=== PATIENT | male | born 1945 | race Caucasian/White ===

== ENCOUNTER 2023-01-23 16:16 | Inpatient (IN) | payer MEDICARE, SELFPAY ==
--- NOTE | ~2023-01-23 | CT_ITS ---
EXAMINATION: CT brain wo con DATE: 01/23/2023 17:47 INDICATION: fall . TECHNIQUE: Computed tomography (CT) of the head was performed without intravenous contrast. The mA wa s adjusted according to patient size. Iterative reconstruction technique was employed. The dose-lengt h product was 681.00 mGy-cm. COMPARISON: None. FINDINGS: No acute intracranial hemorrhage or extra-axial fluid collection. No hydrocephalus, mass, or herniation. No acute ischemic infarct. Unremarkable dural venous sinus attenuation. No acute osseous abnormality. The aerated spaces are clear. Mild atrophy and chronic white matter change. Mild atherosclerotic intracranial calcification. Bilate ral lens replacements. IMPRESSION: No acute intracranial process. Reviewed, dictated and finalized at location K.
--- NOTE | ~2023-01-23 | XR_ITS ---
Portable chest x-ray Comparison: 07/16/2017 Clinical History: Preoperative evaluation Findings: Lungs are clear, without focal consolidation or pleural effusion. Cardiomediastinal silho uette is prominent, possibly due to AP technique. Bones and soft tissues are unremarkable. Impression: Clear lungs. Reviewed, dictated and finalized at location . Impression: Clear lungs.
--- NOTE | ~2023-01-23 | XR_ITS ---
EXAM: XR hip RT 2V w AP pelvis DATE: 01/23/2023 16:54 HISTORY: FELL OFF LADDER, PAIN IN RT HIP . COMPARISON: None available. FINDINGS: Osteopenia. Transverse fracture through the midportion of the right femoral neck without s ignificant displacement degenerative changes in the left hip and lumbar spine. Heterotopic ossificati on at the left hip. Scattered pelvic enthesopathy. IMPRESSION: Nondisplaced transverse right femoral neck fracture. Reviewed, dictated and finalized at location K.
--- NOTE | ~2023-01-23 | XR_ITS ---
EXAMINATION: XR surgery orthopedic DATE: 01/24/2023 12:48 INDICATION: Right femoral neck fracture. TECHNIQUE: 3 intraoperative fluoroscopic views of right hip were obtained. I was not present. Fluoros copy exposure time was 33 seconds. COMPARISON: Right hip radiographs 01/23/2023 FINDINGS: There is a fracture of right femoral neck in near-anatomic alignment status post open reduc tion internal fixation with 3 lag screws. There is mild right hip osteoarthritis. IMPRESSION: 1. Right femoral neck fracture status post open reduction internal fixation. Reviewed, dictated and finalized at location A.
--- NOTE | ~2023-01-23 | CT_ITS ---
EXAMINATION: CT cervical spine wo con DATE: 01/23/2023 17:55 INDICATION: fall TECHNIQUE: Computed tomography (CT) of the cervical spine was performed without intravenous contrast. Automated exposure control and iterative reconstruction technique were employed. The dose-length pro duct was 539.50 mGy-cm. COMPARISON: None. FINDINGS: Vertebral Body Alignment: Intact. . Craniocervical and atlantoaxial alignment: Mild degenerative change. Alignment intact. Osseous structures/fracture: No evidence of a lytic or blastic process in the visualized spine. No e vidence of acute fracture. Unfused posterior C1 arch. Cervical soft tissues: The paraspinal soft tissues planes are maintained. Degenerative changes: Degenerative changes, without severe neural foraminal or central canal narrowin g. IMPRESSION: No acute fracture or traumatic malalignment in the cervical spine. Reviewed, dictated and finalized at location K.
[2023-01-23 16:18] VITALS: BP 183/77; PULSE 59; RESP 16; TEMP 36.6; O2SAT 96
--- NOTE | 2023-01-23 17:18 | ED.FALL ---
HPI - Fall General Chief Complaint: Fall Stated Complaint: fall off step stool Time Seen by Provider: 01/23/23 16:18 History of Present Illness HPI Narrative: Patient was on a ladder to fix something and on the second rung when he slipped and fell and landed on his right hip, denies any pain anywhere else. Having trouble moving his right hip. Related Data Home Medications Medication Instructions Recorded Confirmed omega-3 fatty acids 1,000 mg 1,000 mg PO BID 04/05/22 10/17/22 capsule (Fish Oil Concentrate) terbinafine HCl 250 mg tablet 250 mg PO DAILY 10/17/22 10/17/22 Allergies Allergy/AdvReac Type Severity Reaction Status Date / Time No Known Allergies Allergy Verified 10/17/22 10:28 Review of Systems Review of Systems: CONST: No fever. HEENT: No head trauma C/V: No chest pain RESP: No cough GI: No abdominal pain : No dysuria. M/S: Right hip pain SKIN: Abrasion R elbow NEURO: [No headache or focal numbness or weakness] PSYCH: [No depression] [facility] Past Medical History Medical History (Updated 01/23/23 @ 17:20 by Katina Gonsales MD) Exposure to benzene Hyperlipidemia Melanoma Obesity (BMI 30-39.9) Osteoarthritis, knee Surgical History Surgical History H/O vasectomy Social History Social History Smoking packs per day: 1 Smoking cigarettes per day: 20.0 Years smoked: 20 Smoking pack-years: 20.00 Smoking status: Former smoker Tobacco type: cigarettes Smoking end date: 11/12/84 Alcohol intake: current Drinks per week: 3 Alcohol use details: social Substance use: never Substance use type: does not use Lack of Transportation: No Lack of Food: Never True Current Housing: I Have Housing Concerned About Future Housing: No Difficulty Paying Gas/Electric Bills: No Difficulty Paying for Meds: No Currently Unemployed: No Education: Trade/Vocational Certificate Difficulty w/ Childcare or Family Care: No Living arrangements: with family Occupation/Education: retired Gender identity (if verbalized by the patient): Male Sexual Orientation (if Verbalized by the Patient): Straight or Heterosexual Exam Narrative: EXAMINATION OF ORGAN SYSTEMS/BODY AREAS: Constitutional: Vital signs per nursing GENERAL:[No acute distress, non-toxic appearing.] HEAD: Normal with no signs of head trauma. EYES: EOMI, conjunctiva normal ENT: Hearing grossly intact LUNGS: Nonlabored breathing. HEART: [Regular rate and rhythm] ABD: [Soft], [nontender to palpation] EXT: Pain with attempted move right hip SKIN: Abrasions right elbow NEURO: [Alert and oriented x 3.] PSYCH: Normal affect Course Vital Signs Vital signs: Vital Signs Temperature 98 F 01/23/23 16:18 Pulse Rate 59 L 01/23/23 16:18 Respiratory Rate 16 01/23/23 16:18 Blood Pressure 183/77 H 01/23/23 16:18 Pulse Oximetry 96 01/23/23 16:18 Oxygen Delivery Room Air 01/23/23 16:18 Temperature 98 F 01/23/23 16:18 Pulse Rate 59 L 01/23/23 16:18 Respiratory Rate 16 01/23/23 16:18 Blood Pressure 183/77 H 01/23/23 16:18 Pulse Oximetry 96 01/23/23 16:18 Oxygen Delivery Room Air 01/23/23 16:18 MDM - Fall MDM Narrative Medical decision making narrative: 77-year-old male who fell and landed on his right hip, vital stable, has pain with movement of his right hip, has abrasions to his right elbow, denies any pain or trauma anywhere else. X-ray obtained here independently interpreted by myself shows acute right hip fracture. His tetanus is up-to-date, he has normal movement of his elbow and I have low concern for fracture here. Discussed with orthopedics who wants patient admitted to medicine, case discussed with medicine who are agreeable to admitting the patient, requested CT head and C-spine and these are normal. Discharge Plan Discharge Clinical
[2023-01-23 18:07] LABS: Basophils Absolute Auto 0.1 K/mm3 (0.0-0.1); Basophils Percent Auto 0.6 % (0.2-1.2); Eosinophils Absolute Auto 0.1 K/mm3 (0-0.3); Eosinophils Percent Auto 1.6 % (0-4.4); Hematocrit 46.4 % (42.0-52.0); Hemoglobin 15.5 g/dL (14.0-18.0); Immature Granulocyte Absolute 0.03 K/mm3 (0.00-0.031); Immature Granulocyte Percent A 0.3 % (0-0.5); Lymphocytes Absolute Auto 0.71 K/mm3 (0.9-3.2); Lymphocytes Percent Auto 7.9 % (18.3-44.2); Mean Corpuscular HGB Conc 33.4 g/dl (32-36); Mean Corpuscular Hemoglobin 29.5 pg (26-34); Mean Corpuscular Volume 88.4 fl (80-100); Mean Platelet Volume 10.3 fl (7.4-10.4); Monocytes Absolute Auto 0.5 K/mm3 (0.1-0.6); Neutrophils Absolute Auto 7.5 K/mm3 (1.3-6.7); Neutrophils Percent Auto 83.6 % (45.5-73.1); Platelet Count Result 170 k/mm3 (150-375); Red Blood Count 5.25 M/mm3 (4.6-6.20); Red Cell Distribution Width 13.8 % (11.5-14.5); White Blood Count 8.9 K/mm3 (4.5-10.0)
[2023-01-23 18:17] LABS: Anion Gap 5 mmol/L (8-16); Blood Urea Nitrogen 18 mg/dL (9-20); Calcium 9.1 mg/dL (8.4-10.2); Carbon Dioxide 31 mmol/L (22-30); Chloride 104 mmol/L (98-107); Estimated CRCL calculation 66 ml/min; Estimated Glomerular Filt Rate > 60; Glucose 99 mg/dL (65-110); Potassium 4.7 mmol/L (3.4-5.0); Sodium 140 mmol/L (137-145)
[2023-01-23] MEDS: diazePAM (*CRX) 5 MG TABLET PO (20:43)
--- NOTE | 2023-01-23 20:53 | PM.IMHP ---
H&P: HPI History of Present Illness Date/Time: 01/23/23 20:53 Chief Complaint: Fall Narrative: This is a very active 77-year-old male patient who was making some repairs on assessed. The patient was standing on the 2nd rung of the ladder when he fell off and landed on his right hip. The patient stated that the latter was still in the position so he is not sure what exactly happened because the latter did not fall. The patient was having difficulty moving that right hip. He denies hitting his head. The patient does not take any anticoagulation however he is on NSAIDs chronically. Hip and pelvis CT was read as nondisplaced transverse right femoral neck. Head CT was read as no acute intracranial process. Cervical spine no acute fracture or traumatic malalignment in the cervical spine. The patient was complaining of right hip pain. Dr. Doan was notified and agrees to consultation. The patient was complaining of muscle spasms and was given Valium and IV Tylenol. The patient is being admitted to inpatient status on the date of service of 01/23/2023. Review of Systems Review of Systems: All systems reviewed & are unremarkable except as noted in HPI and below Constitutional: Constitutional: Reports as per HPI and Reports no additional constitutional complaints Eyes: Eyes: Reports as per HPI and Reports no additional eye complaints ENT: Reports system reviewed and no additional complaints, except as documented and Reports Normal hearing present Cardiovascular: Cardiovascular: Reports no additional cardiovascular complaints Respiratory: Respiratory: Reports no additional respiratory complaints and Reports no additional respiratory complaints Gastrointestinal: Gastrointestinal: Reports as per HPI and Reports no additional gastrointestinal complaints Musculoskeletal: Musculoskeletal: Reports no additional musculoskeletal complaints Integumentary/Breasts: Skin/Breast: Reports system reviewed and no additional complaints, except as docu and Reports as per HPI Neurologic: Reports system reviewed and no additional complaints, except as documented, Reports as per HPI and Reports Normal hearing present Psychiatric: Psychiatric: Reports no additional psychiatric complaints and Reports as per HPI Endocrine: Endocrine: Reports no additional endocrine complaints Hematologic/Lymphatic: Hematologic/Lymphatic: Reports no additional hematologic/lymphatic complaints Allergic/Immunologic: Allergic/Immunologic: Reports no additional allergic/immunologic complaints [facility] Past Medical History Medical History (Updated 01/24/23 @ 01:06 by Reina Odell NP) Exposure to benzene Hyperlipidemia Melanoma Obesity (BMI 30-39.9) Osteoarthritis, knee Surgical History Surgical History (Updated 01/24/23 @ 00:57 by Reina Odell NP) H/O vasectomy History of cataract extraction History of removal of pigmented skin lesion Melanoma Family History Family History (Updated 01/24/23 @ 00:58 by Reina Odell NP) Other Hyperlipidemia Social History Social History (Updated 01/24/23 @ 00:58 by Reina Odell NP) Social History: The patient lives with his who has multiple myeloma and he takes care of her. He is retired from [employer]. He has 2 children. He is a former smoker. He denies any alcohol marijuana or illicit drugs. Code status full code Smoking packs per day: 1 Smoking cigarettes per day: 20.0 Years smoked: 20 Smoking pack-years: 20.00 Smoking status: Former smoker Tobacco type: cigarettes Smoking end date: 11/12/84 Alcohol intake: current Drinks per week: 3 Alcohol use details: social Substance use: never Substance use type: does not use Lack of Transportation: No Lack of Food: Never True Current Housing: I Have Housing Concerned About Future Housing: No Difficulty Paying Gas/Electric Bills: No Difficulty Paying for Meds: No Currently Unemployed: No Education:
[2023-01-23 22:00] VITALS: BP 154/70; PULSE 60; RESP 18; TEMP 36.8; O2SAT 93
--- NOTE | 2023-01-23 22:50 | PM.CNOR ---
Assessment and Plan Assessment and plan (1) Closed fracture of right hip: Qualifiers: Encounter type: initial encounter Qualified Code(s): S72.001A - Fracture of unspecified part of neck of right femur, initial encounter for closed fracture Code(s): S72.001A - Fracture of unspecified part of neck of right femur, initial encounter for closed fracture Status: Acute Assessment and Plan: New patient evaluation for chief complaint right hip fx. History, physical exam and radiographs reviewed with the patient. Discussed the condition, nature, etiology and course of natural history with the patient. Treatment options including surgical and nonoperative treatment were reviewed. Risks and benefits of each as well as alternatives reviewed. The patient's questions were answered. Pain control, mechanical dvt px. Discussed nonoperative and operative treatment options with the patient. Risks and benefits of each as well as alternatives were reviewed. All of the patient's questions were answered. The risks of surgery reviewed including but not limited to: Neurovascular damage, wound complication, infection, blood clot, pulmonary embolus, stroke, myocardial infarction, and anesthetic risks up to and including . Continued pain and possible dysfunction were explained. Specific risks of the procedure including later recurrence of deformity. No guarantees were offered. If hardware used, discussed risk of failure/ breakage and possible need for removal. If complications occur, the patient understands the need for further treatment, possible further surgery. Patient verbalizes understanding and wishes to proceed. PLAN: RT hip pinning Plan to proceed when medically stable. History of Present Illness HPI Consult date: 01/24/23 Requesting physician: Katina Gonsales MD Chief complaint: Rt Hip Fx Narrative: 77 yo man, fell from ladder onto right hip. Xrays show rt hip fx. Independent ambulator with no problems with hip previously. No previous assistive device needs. Review of Systems Constitutional: Constitutional: Denies fever(s) Eyes: Eyes: Denies blurry vision ENT: Reports Normal hearing present Cardiovascular: Cardiovascular: Denies chest pain and Denies dyspnea Respiratory: Respiratory: Denies dyspnea and Denies wheezing Gastrointestinal: Gastrointestinal: Denies abdominal pain Genitourinary: Genitourinary: Denies urinary urgency Musculoskeletal: Musculoskeletal: Reports as per HPI and Denies numbness Integumentary/Breasts: Skin/Breast: Denies changing lesions and Denies sores Neurologic: Reports Normal hearing present, Denies behavioral changes, Denies confusion, Denies numbness and Denies convulsions Psychiatric: Psychiatric: Denies behavioral changes, Denies confusion and Denies hallucinations Endocrine: Endocrine: Denies heat intolerance Hematologic/Lymphatic: Hematologic/Lymphatic: Denies easy bleeding Allergic/Immunologic: Allergic/Immunologic: Denies wheezing PMFSH Past Medical History Medical History Exposure to benzene Hyperlipidemia Melanoma Obesity (BMI 30-39.9) Osteoarthritis, knee Surgical History Surgical History H/O vasectomy History of cataract extraction History of removal of pigmented skin lesion Melanoma Family History Family History Other Hyperlipidemia Social History Social History Social History: The patient lives with his who has multiple myeloma and he takes care of her. He is retired from [employer]. He has 2 children. He is a former smoker. He denies any alcohol marijuana or illicit drugs. Code status full code Smoking packs per day: 1 Smoking cigarettes per day: 20.0 Years smoked: 20 Smoking pack-years: 20.00 Sm
[2023-01-23] MEDS: HYDROcodone/acetaminophen (*CRX) 5-325 MG TABLET 1 TAB PO (23:37)
[2023-01-24] VITALS (10 sets, daily range): BP systolic 108–175; BP diastolic 54–73; PULSE 48–68; RESP 13–20; TEMP 36.4–36.8; O2SAT 93–98
[2023-01-24] MEDS: SODIUM CHLORIDE 0.9% IV 1,000 ML 100 ML IV CONT (03:02)
[2023-01-24 06:55] LABS: Basophils Absolute Auto 0.1 K/mm3 (0.0-0.1); Basophils Percent Auto 0.9 % (0.2-1.2); Eosinophils Absolute Auto 0.2 K/mm3 (0-0.3); Eosinophils Percent Auto 3.3 % (0-4.4); Hematocrit 42.9 % (42.0-52.0); Hemoglobin 14.2 g/dL (14.0-18.0); Immature Granulocyte Absolute 0.01 K/mm3 (0.00-0.031); Immature Granulocyte Percent A 0.1 % (0-0.5); Lymphocytes Absolute Auto 0.83 K/mm3 (0.9-3.2); Lymphocytes Percent Auto 12.4 % (18.3-44.2); Mean Corpuscular HGB Conc 33.1 g/dl (32-36); Mean Corpuscular Hemoglobin 29.7 pg (26-34); Mean Corpuscular Volume 89.7 fl (80-100); Mean Platelet Volume 10.2 fl (7.4-10.4); Monocytes Absolute Auto 0.6 K/mm3 (0.1-0.6); Monocytes Percent Auto 9.2 % (2.6-8.5); Neutrophils Percent Auto 74.1 % (45.5-73.1); Platelet Count Result 148 k/mm3 (150-375); Red Blood Count 4.78 M/mm3 (4.6-6.20); Red Cell Distribution Width 13.8 % (11.5-14.5); White Blood Count 6.7 K/mm3 (4.5-10.0)
[2023-01-24 07:15] LABS: Alanine Aminotransferase 29 U/L (6-50); Albumin Level 4.1 g/dL (3.5-5.1); Alkaline Phosphatase 47 U/L (38-126); Anion Gap 4 mmol/L (8-16); Aspartate Amino Transferase 29 U/L (17-59); Bilirubin,Total 1.4 mg/dL (0.2-1.3); Blood Urea Nitrogen 18 mg/dL (9-20); Calcium 8.7 mg/dL (8.4-10.2); Carbon Dioxide 31 mmol/L (22-30); Chloride 103 mmol/L (98-107); Estimated CRCL calculation 66 ml/min; Estimated Glomerular Filt Rate > 60; Glucose 107 mg/dL (65-110); Magnesium 2.3 mg/dL (1.6-2.3); Potassium 4.1 mmol/L (3.4-5.0); Sodium 138 mmol/L (137-145)
--- NOTE | 2023-01-24 07:18 | WPDHPUPDATE1 ---
History and Physical Update Update Date/Time: 01/24/23 07:18 History and Physical has been reviewed, including an updated exam of the patient. There are NO changes in the patient's condition. Risks, benefits, and alternatives have been discussed and questions answered. Patient agrees to proceed with procedure.
[2023-01-24 08:08] LABS: Thyroid Stimulating Hormone Reflex 0.879 uIU/mL (0.465-4.68)
--- NOTE | 2023-01-24 09:49 | PC.NURSE ---
Patient off of unit to surgery
[2023-01-24] MEDS: LACTATED RINGERS 1,000 ML 30 ML IV CONT (10:15)
[2023-01-24] MEDS: ACETAMINOPHEN 500 MG TABLET 1000 MG PO (10:49)
[2023-01-24] MEDS: TRANEXAMIC ACID 1,000MG/ISO100 1,000 MG/100 ML BAG 200 MG IVPB (10:52)
[2023-01-24] MEDS: KETOROLAC 15 MG/ML VIAL (*BKC) IV PUSH (10:52)
--- NOTE | 2023-01-24 11:31 | WPDANESEPPF ---
Anes - Initial Pre Proc Eval Procedure: Operation Date: 01/24/23 12:30 Proposed Procedures p Right Hip Pinning - Andrew Doan MD Date/Time: 01/24/23 11:31 Surgeon: Shreya Escobar MD Pre Op Diagnosis: Rt Hip Fx Patient Data Age: 77 Gender: M Height: 1.68 m Weight: 96 kg Last Vital Signs Temp 36.7 C 01/24/23 10:00 Pulse 56 L 01/24/23 10:00 Resp 20 01/24/23 10:00 BP 175/67 H 01/24/23 10:00 Pulse Ox 94 01/24/23 10:00 O2 Del Method Room Air 01/24/23 10:00 Allergies Allergy/AdvReac Type Severity Reaction Status Date / Time No Known Allergies Allergy Verified 10/17/22 10:28 Home Medications Medication Instructions Recorded Confirmed Type diclofenac sodium 50 mg 75 mg PO BID PRN pain #60 tabs 04/05/22 01/23/23 Rx tablet,delayed release omega-3 fatty acids 1,000 mg 1,000 mg PO BID 04/05/22 01/23/23 History capsule (Fish Oil Concentrate) simvastatin 20 mg tablet 20 mg PO HS 01/23/23 01/23/23 History Laboratory Tests 01/23/23 01/24/23 01/24/23 18:00 01:51 06:43 WBC 8.9 K/mm3 (4.5-10.0) RBC 5.25 M/mm3 (4.6-6.20) Hgb 15.5 g/dL (14.0-18.0) Hct 46.4 % (42.0-52.0) MCV 88.4 fl (80-100) MCH 29.5 pg (26-34) MCHC 33.4 g/dl (32-36) RDW 13.8 % (11.5-14.5) Plt Count 170 k/mm3 (150-375) MPV 10.3 fl (7.4-10.4) Immature Gran % (Auto) 0.3 % (0-0.5) Neut % (Auto) 83.6 H % (45.5-73.1) Lymph % (Auto) 7.9 L % (18.3-44.2) Becker % (Auto) 6.0 % (2.6-8.5) Eos % (Auto) 1.6 % (0-4.4) Baso % (Auto) 0.6 % (0.2-1.2) Lymph # (Auto) 0.71 L K/mm3 (0.9-3.2) Becker # (Auto) 0.5 K/mm3 (0.1-0.6) Eos # (Auto) 0.1 K/mm3 (0-0.3) Baso # (Auto) 0.1 K/mm3 (0.0-0.1) Abs Immat Gran (auto) 0.03 K/mm3 (0.00-0.031) Absolute Neuts (auto) 7.5 H K/mm3 (1.3-6.7) Absolute Nucleated RBC 0.0 K/mm3 (0.0-0.012) Nucleated RBC % 0.0 % (0.0-0.2) Sodium 140 mmol/L 138 mmol/L (137-145) (137-145) Potassium 4.7 mmol/L 4.1 mmol/L (3.4-5.0) (3.4-5.0) Chloride 104 mmol/L 103 mmol/L (98-107) (98-107) Carbon Dioxide 31 H mmol/L 31 H mmol/L (22-30) (22-30) Anion Gap 5 L mmol/L 4 L mmol/L (8-16) (8-16) BUN 18 mg/dL 18 mg/dL (9-20) (9-20) Creatinine 0.90 mg/dL 0.90 mg/dL (0.7-1.3) (0.7-1.3) Estim Creat Clear Calc 66 ml/min 66 ml/min Estimated GFR > 60 > 60 (59 - ) (59 - ) Glucose 99 mg/dL 107 mg/dL (65-110) (65-110) Calcium 9.1 mg/dL 8.7 mg/dL (8.4-10.2) (8.4-10.2) Magnesium 2.3 mg/dL (1.6-2.3) Total Bilirubin 1.4 H mg/dL (0.2-1.3) AST 29 U/L (17-59) ALT 29 U/L (6-50) Alkaline Phosphatase 47 U/L (38-126) Total Protein 7.0 g/dL (6.3-8.2) Albumin 4.1 g/dL (3.5-5.1) TSH (Reflex) Blood Type A Negative Antibody Screen Negative 01/24/23 06:44 WBC 6.7 K/mm3 (4.5-10.0) RBC 4.78 M/mm3 (4.6-6.20) Hgb 14.2 g/dL (14.0-18.0) Hct 42.9 % (42.0-52.0) MCV 89.7 fl (80-100) MCH 29.7 pg (26-34) MCHC 33.1 g/dl (32-36) RDW 13.8 % (11.5-14.5) Plt Count 148 L k/mm3 (150-375) MPV 10.2 fl (7.4-10.4) Immature Gran % (Auto) 0.1 % (0-0.5) Neut % (Auto) 74.1 H % (45.5-73.1) Lymph % (Auto) 12.4 L % (18.3-44.2) Becker % (Auto) 9.2 H % (2.6-8.5) Eos % (Auto) 3.3 % (0-4.4) Baso % (Auto) 0.9 % (0.2-1.2) Lymph # (Auto) 0.83 L K/mm3 (0.9-3.2) Becker # (Auto) 0.6 K/mm3 (0.1-0.6) Eos # (Auto) 0.2 K/mm3 (0-0.3) Baso # (Auto) 0.1 K/mm3 (0.0-0.1) Abs Immat Gran (auto) 0.01 K/mm3 (0.00-0.031) Absolute Neuts (auto) 5.
[2023-01-24] MEDS: ceFAZolin 2 GM/D5W 50 ML 2 GM/50 ML BAG IVPB (12:06)
[2023-01-24] MEDS: BUPIVACAINE/EPINEPHRINE 0.5% 50 ML VIAL 30 ML INFILTRATE (12:31)
--- NOTE | 2023-01-24 12:54 | W.PM.PROC2 ---
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 Otherwise medically stable and good bone quality. Indicated for hip pinning. Description of Procedure Informed consent signed. Extremity marked in preoperative holding area. Patient received intravenous antibiotics. Brought to operating room and underwent general anesthetic by the Anesthesia Team. Positioned supine on the fracture table. Right leg placed into longitudinal traction. Left leg extended out of field. Image intensification brought in and confirm reduction of fracture. Right hip prepped and draped in usual sterile surgical fashion using ChloraPrep skin solution. Image intensification used to guide the starting position and a longitudinal incision made with 10 blade knife over the lateral proximal femur. Blunt dissection carried down to the lateral femur. Bleeding controlled with electrocautery. First guide pin placed in the inferior center position of the femoral neck and head. Confirmed with image intensification. Two subsequent pins placed superior and anterior and superior and posterior to the 1st pin to create an inverted triangle type pattern. Pins confirmed with image intensification. Length of screw measured, reaming performed. Appropriate size screw placed with good compression and fixation noted for all 3 pins. Guide pins removed. Final image intensification confirmed reduction of fracture and placement of hardware. Wound thoroughly irrigated with antibiotic solution. Fascia repaired with 2 0 Vicryl interrupted sutures. Subcutaneous tissue repaired with 3 0 Monocryl interrupted suture. skin approximated with glue. Sterile dressing applied. Patient woken from anesthesia, extubated and returned to recovery room in stable condition. All sponge needle and instrument counts correct at the end of the case. Implants Arthrex 7.0 mm cannulated screw x3 Estimated Blood Loss 5 Urine Output 650 Drains No Packing No Pathology None sent Complications None Condition Stable Disposition PACU [facility] Billing Surgery - Charge Forward: Surgery Billing ([id number])
--- NOTE | 2023-01-24 13:50 | PM.IMPN ---
Progress Note: A&P Assessment and Plan (1) Closed fracture of right hip: Qualifiers: Encounter type: initial encounter Qualified Code(s): S72.001A - Fracture of unspecified part of neck of right femur, initial encounter for closed fracture Code(s): S72.001A - Fracture of unspecified part of neck of right femur, initial encounter for closed fracture Status: Acute Assessment and Plan: came to the ED post fall from the 2nd rung of the ladder Hip/pelvis xray: Nondisplaced transverse right femoral neck fracture. POD 0 pain medications on board, adjust as indicated Ortho consulted Hip repair surgery today PT/OT ordered DVT prophylaxis (2) Hyperlipidemia: Code(s): E78.5 - Hyperlipidemia, unspecified Status: Acute Assessment and Plan: Simvastatin can be resumed. (3) Elevated blood pressure reading: Code(s): R03.0 - Elevated blood-pressure reading, without diagnosis of hypertension Status: Acute Assessment and Plan: BP 108/54 P.r.n. hydralazine. Continue to trend stable at this time Time Spent With Patient Time: 52 minutes Time with patient: Greater than 35 minutes Subjective Date/time seen: 01/24/23 13:50 Interval history: 01/24/23 1350 Patient is doing ok. He currently denies any pain, chest pain, shortness of breath, nausea, vomiting, diarrhea, or constipation. Spoke to him about pain medications. Family was in the room, and all questions were answered. 01/23/23? 20:53 This is a very active 77-year-old male patient who was making some repairs on assessed.? The patient was standing on the 2nd rung of the ladder when he fell off and landed on his right hip.? The patient stated that the latter was still in the position so he is not sure what exactly happened because the latter did not fall.? The patient was having difficulty moving that right hip.? He denies hitting his head.? The patient does not take any anticoagulation however he is on NSAIDs chronically.? Hip and pelvis CT was read as nondisplaced transverse right femoral neck.? Head CT was read as no acute intracranial process.? Cervical spine no acute fracture or traumatic malalignment in the cervical spine.? The patient was complaining of right hip pain.? Dr. Doan was notified and agrees to consultation.? The patient was complaining of muscle spasms and was given Valium and IV Tylenol.? The patient is being admitted to inpatient status on the date of service of 01/23/2023. Review of Systems Review of Systems: All systems reviewed & are unremarkable except as noted in HPI and below Exam Narrative: General: well-nourished, tired-appearing 77-year-old male, laying in bed, uncomfortable, NARD Neuro: awake, alert and oriented x4, speech clear, no focal neuro deficits noted HEENMT: normocephalic, atraumatic, EOMI, sclerae anicteric, moist oral mucosa Respiratory: Clear to auscultation bilaterally without crackles, rhonchi or wheezes, nonlabored breathing Cardio: regular rate, regular rhythm with S1-S2 Abdomen: nondistended, normoactive bowel sounds, soft, nontender to palpation Extremities: no edema, erythema, or tenderness to palpation, DP pulses 2+ bilaterally, right hip slightly swollen dressing dry and intact Skin: no rashes or lesions, warm and dry Psych: appropriate mood and affect, judgment and insight intact Objective Data Vital Signs Vital Signs: Vital Signs - 24 hr 01/23/23 16:18 01/23/23 22:00 01/24/23 05:26 Temperature 98 F 98.2 F 97.5 F L Pulse Rate 59 L 60 58 L Respiratory Rate 16 18 18 Blood Pressure 183/77 H 154/70 H 145/64 H Pulse Oximetry 96 93 95 Oxygen Delivery Room Air Oxygen Flow Rate 01/24/23 10:00 01/24/23 12:56 01/24/23 13:10 Temperature 98.1 F 97.5 F L Pulse Rate 56 L 68 60 Respiratory Rate 20 13 14 Blood Pressure 175/67 H 135/59 L 115/65 Pulse Oximetry 94 98 96 Oxygen Delivery Room Air Simple Face Mask Simple Face
[2023-01-24] MEDS: SENNA/DOCUSATE SODIUM TABLET 2 TAB PO (16:55)
[2023-01-24] MEDS: SIMVASTATIN 20 MG TABLET PO (20:46)
[2023-01-24] MEDS: ceFAZolin 1 GM/NS 50 ML 1 GM/50 ML BAG IVPB (20:46)
[2023-01-25 03:42] VITALS: BP 144/61; PULSE 60; RESP 18; TEMP 36.8; O2SAT 95
[2023-01-25] MEDS: ceFAZolin 1 GM/NS 50 ML 1 GM/50 ML BAG IVPB ×2 (03:48→12:06)
[2023-01-25 06:38] LABS: Basophils Percent Auto 0.1 % (0.2-1.2); Eosinophils Absolute Auto 0.1 K/mm3 (0-0.3); Eosinophils Percent Auto 0.6 % (0-4.4); Hematocrit 42.6 % (42.0-52.0); Immature Granulocyte Absolute 0.02 K/mm3 (0.00-0.031); Immature Granulocyte Percent A 0.2 % (0-0.5); Lymphocytes Absolute Auto 0.66 K/mm3 (0.9-3.2); Lymphocytes Percent Auto 7.4 % (18.3-44.2); Mean Corpuscular HGB Conc 32.9 g/dl (32-36); Mean Corpuscular Hemoglobin 29.7 pg (26-34); Mean Corpuscular Volume 90.4 fl (80-100); Mean Platelet Volume 10.7 fl (7.4-10.4); Monocytes Absolute Auto 0.6 K/mm3 (0.1-0.6); Monocytes Percent Auto 7.2 % (2.6-8.5); Neutrophils Absolute Auto 7.6 K/mm3 (1.3-6.7); Neutrophils Percent Auto 84.5 % (45.5-73.1); Platelet Count Result 155 k/mm3 (150-375); Red Blood Count 4.71 M/mm3 (4.6-6.20); Red Cell Distribution Width 13.5 % (11.5-14.5)
[2023-01-25 06:49] LABS: Anion Gap 6 mmol/L (8-16); Blood Urea Nitrogen 19 mg/dL (9-20); Calcium 8.4 mg/dL (8.4-10.2); Carbon Dioxide 28 mmol/L (22-30); Chloride 103 mmol/L (98-107); Estimated CRCL calculation 74 ml/min; Estimated Glomerular Filt Rate > 60; Glucose 112 mg/dL (65-110); Magnesium 2.5 mg/dL (1.6-2.3); Potassium 4.4 mmol/L (3.4-5.0); Sodium 137 mmol/L (137-145)
[2023-01-25 07:42] VITALS: BP 162/72; PULSE 50; RESP 20; TEMP 36.1; O2SAT 95
--- NOTE | 2023-01-25 08:50 | PM.IMPN ---
Progress Note: A&P Assessment and Plan (1) Closed fracture of right hip: Qualifiers: Encounter type: initial encounter Qualified Code(s): S72.001A - Fracture of unspecified part of neck of right femur, initial encounter for closed fracture Code(s): S72.001A - Fracture of unspecified part of neck of right femur, initial encounter for closed fracture Status: Acute Assessment and Plan: came to the ED post fall from the 2nd rung of the ladder Hip/pelvis xray: Nondisplaced transverse right femoral neck fracture. POD 0 pain medications on board, adjust as indicated Ortho consulted Hip repair surgery today PT/OT ordered DVT prophylaxis (2) Hyperlipidemia: Code(s): E78.5 - Hyperlipidemia, unspecified Status: Acute Assessment and Plan: Simvastatin can be resumed. (3) Elevated blood pressure reading: Code(s): R03.0 - Elevated blood-pressure reading, without diagnosis of hypertension Status: Acute Assessment and Plan: BP 108/54 P.r.n. hydralazine. Continue to trend stable at this time Subjective Date/time seen: 01/25/23 08:50 Interval history: 01/24/23 1350 Patient is doing ok. He currently denies any pain, chest pain, shortness of breath, nausea, vomiting, diarrhea, or constipation. Spoke to him about pain medications. Family was in the room, and all questions were answered. 01/23/23? 20:53 This is a very active 77-year-old male patient who was making some repairs on assessed.? The patient was standing on the 2nd rung of the ladder when he fell off and landed on his right hip.? The patient stated that the latter was still in the position so he is not sure what exactly happened because the latter did not fall.? The patient was having difficulty moving that right hip.? He denies hitting his head.? The patient does not take any anticoagulation however he is on NSAIDs chronically.? Hip and pelvis CT was read as nondisplaced transverse right femoral neck.? Head CT was read as no acute intracranial process.? Cervical spine no acute fracture or traumatic malalignment in the cervical spine.? The patient was complaining of right hip pain.? Dr. Doan was notified and agrees to consultation.? The patient was complaining of muscle spasms and was given Valium and IV Tylenol.? The patient is being admitted to inpatient status on the date of service of 01/23/2023. Review of Systems Review of Systems: All systems reviewed & are unremarkable except as noted in HPI and below Exam Narrative: General: well-nourished, tired-appearing 77-year-old male, laying in bed, uncomfortable, NARD Neuro: awake, alert and oriented x4, speech clear, no focal neuro deficits noted HEENMT: normocephalic, atraumatic, EOMI, sclerae anicteric, moist oral mucosa Respiratory: Clear to auscultation bilaterally without crackles, rhonchi or wheezes, nonlabored breathing Cardio: regular rate, regular rhythm with S1-S2 Abdomen: nondistended, normoactive bowel sounds, soft, nontender to palpation Extremities: no edema, erythema, or tenderness to palpation, DP pulses 2+ bilaterally, right hip slightly swollen dressing dry and intact Skin: no rashes or lesions, warm and dry Psych: appropriate mood and affect, judgment and insight intact Objective Data Vital Signs Vital Signs: Vital Signs - 24 hr 01/24/23 10:00 01/24/23 12:56 01/24/23 13:10 Temperature 98.1 F 97.5 F L Pulse Rate 56 L 68 60 Respiratory Rate 20 13 14 Blood Pressure 175/67 H 135/59 L 115/65 Pulse Oximetry 94 98 96 Oxygen Delivery Room Air Simple Face Mask Simple Face Mask Oxygen Flow Rate 6 6 01/24/23 13:25 01/24/23 13:40 01/24/23 13:57 Temperature 97.5 F L Pulse Rate 52 L 48 L 55 L Respiratory Rate 16 16 18 Blood Pressure 112/59 L 108/54 L 145/60 H Pulse Oximetry 94 97 98 Oxygen Delivery Room Air Room Air Oxygen Flow Rate 01/24/23 15:42 01/24/23 15:48 01/24/23 19:42 Temper
--- NOTE | 2023-01-25 08:55 | P.PNOP_ITS ---
Progress Note: A&P Assessment and Plan (1) Closed fracture of right hip: Qualifiers: Encounter type: initial encounter Qualified Code(s): S72.001A - Fracture of unspecified part of neck of right femur, initial encount er for closed fracture <Sharon ReeseANNETTE ruiz - Last Filed: 01/25/23 09:02> Code(s): S72.001A - Fracture of unspecified part of neck of right femur, initial encounter for closed fracture <Sharon Reesesara, LOGISTICS TEAM LEADER - Last Filed: 01/25/23 09:02> Status: Acute <Sharon Hartley, LOGISTICS TEAM LEADER - Last Filed: 01/25/23 09:02> Assessment and Plan: POD #1 : Right Hip Pinning Continue PT/OT. WBAT. Walker. HIGH FALL RISK. Continue pain control. Ice hip. Protect skin. DVT prophylaxis with Aspirin. SCDs. Incentive Spirometry Use reviewed. Monitor Dressing. Change prior to discharge. Bowel Regimen. Dispo: Home with Home Health pending progress with PT/OT <Sharon Reesesara, LOGISTICS TEAM LEADER - Last Filed: 01/25/23 09:02> POD #1 : Right Hip Pinning Continue PT/OT. Partial weight right leg as tolerated. Walker. HIGH FALL RISK. Continue pain control. Ice hip. Protect skin. DVT prophylaxis with Aspirin. SCDs. Incentive Spirometry Use reviewed. Monitor Dressing. Change prior to discharge. Bowel Regimen. Dispo: Home with Home Health pending progress with PT/OT <Andrew Doan MD - Last Filed: 01/25/23 09:04> (2) Elevated blood pressure reading: Code(s): R03.0 - Elevated blood-pressure reading, without diagnosis of hypertension <Sharon Reesesara, LOGISTICS TEAM LEADER - Last Filed: 01/25/23 09:02> Status: Acute <Sharon Reesesara LOGISTICS TEAM LEADER - Last Filed: 01/25/23 09:02> Assessment and Plan: Medicine following <Sharon Reesesara, LOGISTICS TEAM LEADER - Last Filed: 01/25/23 09:02> (3) Prostatism: Code(s): N40.0 - Benign prostatic hyperplasia without lower urinary tract symptoms <Sharon GuevaraEdi Hartley, LOGISTICS TEAM LEADER - Last Filed: 01/25/23 09:02> Status: Acute <Sharon HartleyPARIP - Last Filed: 01/25/23 09:02> Subjective Subjective Date/Time Seen: 01/25/23 08:55 <Sharon ReesePARI ruizP - Last Filed: 01/25/23 09:02> Post Op day: 1 <Sharon GuevaraEdi HughPARI ruizP - Last Filed: 01/25/23 09:02> Interval history: POD #1: Right Hip Pinning Patient doing well. Pain well controlled. No new concerns. Hopeful for discharge home with home health. <Sharon GuevaraANNETTE Watts - Last Filed: 01/25/23 09:02> Review of Systems Review of Systems: All systems reviewed & are unremarkable except as noted in HPI and below <Sharon GuevaraPARI WattsP - Last Filed: 01/25/23 09:02> Constitutional: Constitutional: Denies chills, Denies fever(s), Denies headache(s), Denies lethargy and Reports weakness <Sharon GuevaraEdi HuhgPARI ruizP - Last Filed: 01/25/23 09:02> ENT: Denies headache(s) <Sharon GuevaraPARI WattsP - Last Filed: 01/25/23 09:02> Cardiovascular: Cardiovascular: Denies chest pain, Denies diaphoresis, Denies lightheadedness, Denies palpitations, Denies dyspnea and Denies dyspnea on exertion <Sharon GuevaraPARI WattsP - Last Filed: 01/25/23 09:02> Respiratory: Respiratory: Denies cough, Denies dyspnea and Denies dyspnea on exertion <Sharon GuevaraPARI WattsP - Last Filed: 01/25/23 09:02> Gastrointestinal: Gastrointestinal: Denies constipation, Denies diarrhea, Denies nausea and Denies vomiting <Sharon GuevaraPARI WattsP - Last Filed: 01/25/23 09:02> Genitourinary: Genitourinary: Denies dysuria, Reports urinary frequency and Denies urinary hesitancy <Sharon GuevaraPARI WattsP - Last Filed: 01/25/23 09:02> Musculoskeletal: Musculoskeletal: Reports joint swelling (Right Hip ) a
--- NOTE | 2023-01-25 08:55 | PM.PNORT ---
Progress Note: A&P Assessment and Plan (1) Closed fracture of right hip: Qualifiers: Encounter type: initial encounter Qualified Code(s): S72.001A - Fracture of unspecified part of neck of right femur, initial encounter for closed fracture <Sharon Hartley, LACE INSPECTOR - Last Filed: 01/25/23 09:02> Code(s): S72.001A - Fracture of unspecified part of neck of right femur, initial encounter for closed fracture <Sharonsa Lo Hartley, LACE INSPECTOR - Last Filed: 01/25/23 09:02> Status: Acute <Sharon Hartley, LACE INSPECTOR - Last Filed: 01/25/23 09:02> Assessment and Plan: POD #1 : Right Hip Pinning Continue PT/OT. WBAT. Walker. HIGH FALL RISK. Continue pain control. Ice hip. Protect skin. DVT prophylaxis with Aspirin. SCDs. Incentive Spirometry Use reviewed. Monitor Dressing. Change prior to discharge. Bowel Regimen. Dispo: Home with Home Health pending progress with PT/OT <Sharon Hartley, LACE INSPECTOR - Last Filed: 01/25/23 09:02> POD #1 : Right Hip Pinning Continue PT/OT. Partial weight right leg as tolerated. Walker. HIGH FALL RISK. Continue pain control. Ice hip. Protect skin. DVT prophylaxis with Aspirin. SCDs. Incentive Spirometry Use reviewed. Monitor Dressing. Change prior to discharge. Bowel Regimen. Dispo: Home with Home Health pending progress with PT/OT <Andrew Doan MD - Last Filed: 01/25/23 09:04> (2) Elevated blood pressure reading: Code(s): R03.0 - Elevated blood-pressure reading, without diagnosis of hypertension <Sharon Reesesara, LACE INSPECTOR - Last Filed: 01/25/23 09:02> Status: Acute <Sharon Hartley, LACE INSPECTOR - Last Filed: 01/25/23 09:02> Assessment and Plan: Medicine following <Sharon Hartley, LACE INSPECTOR - Last Filed: 01/25/23 09:02> (3) Prostatism: Code(s): N40.0 - Benign prostatic hyperplasia without lower urinary tract symptoms <Sharon Lo Reesesara, LACE INSPECTOR - Last Filed: 01/25/23 09:02> Status: Acute <Sharon HartleyPARIP - Last Filed: 01/25/23 09:02> Subjective Subjective Date/Time Seen: 01/25/23 08:55 <Sharon Hartley [facility] - Last Filed: 01/25/23 09:02> Post Op day: 1 <Sharon HartleyPARIP - Last Filed: 01/25/23 09:02> Interval history: POD #1: Right Hip Pinning Patient doing well. Pain well controlled. No new concerns. Hopeful for discharge home with home health. <Sharon GuevaraEdi HughPARI ruizP - Last Filed: 01/25/23 09:02> Review of Systems Review of Systems: All systems reviewed & are unremarkable except as noted in HPI and below <Sharon GuevaraEdi HughPARI ruizP - Last Filed: 01/25/23 09:02> Constitutional: Constitutional: Denies chills, Denies fever(s), Denies headache(s), Denies lethargy and Reports weakness <Sharon GuevaraEdi Hughsara LACE INSPECTOR - Last Filed: 01/25/23 09:02> ENT: Denies headache(s) <Sharon GuevaraEdi Hughsara LACE INSPECTOR - Last Filed: 01/25/23 09:02> Cardiovascular: Cardiovascular: Denies chest pain, Denies diaphoresis, Denies lightheadedness, Denies palpitations, Denies dyspnea and Denies dyspnea on exertion <Sharon GuevaraEdi HughPARI ruizP - Last Filed: 01/25/23 09:02> Respiratory: Respiratory: Denies cough, Denies dyspnea and Denies dyspnea on exertion <Sharon GuevaraEdi Hughsara [facility] - Last Filed: 01/25/23 09:02> Gastrointestinal: Gastrointestinal: Denies constipation, Denies diarrhea, Denies nausea and Denies vomiting <Sharon GuevaraEdi Hughsara LACE INSPECTOR - Last Filed: 01/25/23 09:02> Genitourinary: Genitourinary: Denies dysuria, Reports urinary frequency and Denies urinary hesitancy <Sharon IsmaelEdi Hartley [facility] - Last Filed: 01/25/23 09:02> Musculoskeletal: Musculoskeletal: Reports joint swelling (Right Hip ) and Reports limited range of motion (Right Hip due to recent surgery ) <ANNETTE Friedman - Last Filed: 01/25/23 09:02> Neurologic: Denies headache(s) and Reports weakness <ANNETTE Friedman - Last Filed: 01/25/23 09:02> Endocrine: Endocrine: Denies palpitations <ANNETTE Friedman - Last Filed: 01/25/23 09:02> Exam Const: General: comfortable and no acute distress <Nadia
[2023-01-25] MEDS: SENNA/DOCUSATE SODIUM TABLET 2 TAB PO (08:58)
[2023-01-25] MEDS: CELECOXIB 200 MG CAPSULE PO (08:58)
[2023-01-25] MEDS: ASPIRIN 325 MG ENTERIC TABLET 650 MG PO (08:58)
[2023-01-25] MEDS: HYDROcodone/acetaminophen (*CRX) 5-325 MG TABLET 1 TAB PO (09:00)
[2023-01-25 12:00] VITALS: BP 127/59; PULSE 51; RESP 20; TEMP 36.2; O2SAT 96
--- NOTE | 2023-01-25 13:15 | PM.DS ---
DS: Admitting Diagnosis Discharge Date 01/25/23 1315 Admitting Diagnosis Acute right hip fracture DS: Discharge Diagnosis Discharge Diagnosis (1) Closed fracture of right hip: Qualifiers: Encounter type: initial encounter Qualified Code(s): S72.001A - Fracture of unspecified part of neck of right femur, initial encounter for closed fracture Code(s): S72.001A - Fracture of unspecified part of neck of right femur, initial encounter for closed fracture Status: Acute Assessment and Plan: came to the ED post fall from the 2nd rung of the ladder Hip/pelvis xray: Nondisplaced transverse right femoral neck fracture. POD 1 pain medications on board, adjust as indicated Ortho consulted Hip repair surgery today PT/OT ordered DVT prophylaxis (2) Hyperlipidemia: Code(s): E78.5 - Hyperlipidemia, unspecified Status: Acute Assessment and Plan: Simvastatin can be resumed. (3) Elevated blood pressure reading: Code(s): R03.0 - Elevated blood-pressure reading, without diagnosis of hypertension Status: Acute Assessment and Plan: BP 127/59 P.r.n. hydralazine. Continue to trend stable at this time DS: Summary Hospital Course Hospital Course: Patient is a 77-year-old male with past medical history of hyperlipidemia and hypertension who presented to the ED after falling off a ladder. After the fall patient was noticed seeing having some pain in his right hip and was unable to really walk. X-ray showed nondisplaced transverse right femoral neck fracture. Orthopedics was consulted and patient was taken for hip repair on 01/24/2023. Currently patient has been able to get around with a walker and has worked with PT and OT. Patient is doing well at this time. He does still have some pain when he uses at leg however it is tolerable at this time. Patient denies any current chest pain, shortness a breath, nausea, vomiting, diarrhea constipation. Patient did walk back and forth from the nurse's station. He did state that his pain is about a 2-3. He stated that his pain is an ache rather than a pain. Currently patient is stable for discharge per labs and vital signs. Home health has been arranged. Patient had no further questions or needs at this time. Status at Discharge Functional status at discharge: uses cane/walker Overall status at discharge: patient is progressing back to baseline Time Spent with Patient Time attestation: Total time spent providing and/or coordinating discharge services: 52 minutes Time spent: Greater than 30 minutes Specific discharge activities: Diagnostic testing, chart review, developing a treatment plan, education, care coordination documentation, physical exam, result review Exam Narrative: General: well-nourished, tired-appearing 77-year-old male, laying in bed, uncomfortable, NARD Neuro: awake, alert and oriented x4, speech clear, no focal neuro deficits noted HEENMT: normocephalic, atraumatic, EOMI, sclerae anicteric, moist oral mucosa Respiratory: Clear to auscultation bilaterally without crackles, rhonchi or wheezes, nonlabored breathing Cardio: regular rate, regular rhythm with S1-S2 Abdomen: nondistended, normoactive bowel sounds, soft, nontender to palpation Extremities: no edema, erythema, or tenderness to palpation, DP pulses 2+ bilaterally, right hip slightly swollen dressing dry and intact Skin: no rashes or lesions, warm and dry Psych: appropriate mood and affect, judgment and insight intact DS: Data Data Completed and Pending Labs on day of discharge: Labs from last 24 hours 01/25/23 06:21 WBC 9.0 RBC 4.71 Hgb 14.0 Hct 42.6 MCV 90.4 MCH 29.7 MCHC 32.9 RDW 13.5 Plt Count 155 MPV 10.7 H Immature Gran % (Auto) 0.2 Neut % (Auto) 84.5 H Lymph % (Auto) 7.4 L [place] % (Auto) 7.2 Eos % (Auto) 0.6 Baso % (Auto) 0.1 L Lymph # (Auto) 0.66 L [place] # (Auto) 0.6 Eos # (Auto)
--- NOTE | 2023-01-25 14:36 | P.PNAN_ITS ---
Anes - Prog Note Post-Op Date/Time: 01/25/23 14:36 Cardiovascular status: normal Respiratory status: normal Airway patency: baseline Mental status: baseline Post-Op hydration status: normal Vital Signs: Last Vital Signs Temp 36.2 C L 01/25/23 12:00 Pulse 51 L 01/25/23 12:00 Resp 20 01/25/23 12:00 BP 127/59 L 01/25/23 12:00 Pulse Ox 96 01/25/23 12:00 O2 Del Method Room Air 01/25/23 09:00 O2 Flow Rate 6 01/24/23 13:10 Pain Score (VAS): 0. maybe a 2 when up walking. I/O: Intake & Output 01/24/23 01/25/23 01/25/23 23:59 07:59 15:59 Intake Total 930 50 480 Output Total 650 Balance 930 -600 480 Laboratory Tests 01/25/23 06:21 01/25/23 06:21 01/25/23 06:21 WBC 9.0 RBC 4.71 Hgb 14.0 Hct 42.6 MCV 90.4 MCH 29.7 MCHC 32.9 RDW 13.5 Plt Count 155 MPV 10.7 H Immature Gran % (Auto) 0.2 Neut % (Auto) 84.5 H Lymph % (Auto) 7.4 L [place] % (Auto) 7.2 Eos % (Auto) 0.6 Baso % (Auto) 0.1 L Lymph # (Auto) 0.66 L [place] # (Auto) 0.6 Eos # (Auto) 0.1 Baso # (Auto) 0.0 Abs Immat Gran (auto) 0.02 Absolute Neuts (auto) 7.6 H Absolute Nucleated RBC 0.0 Nucleated RBC % 0.0 Sodium 137 Potassium 4.4 Chloride 103 Carbon Dioxide 28 Anion Gap 6 L BUN 19 Creatinine 0.80 Estim Creat Clear Calc 74 Estimated GFR > 60 Glucose 112 H Calcium 8.4 Magnesium 2.5 H Post-procedural complaints: none Patient Feedback: Patient satisfied with anesthetic care.
== END 2023-01-25 15:55 | disposition home health service (06) | DRG 482 ==
LOC: ANHED 18:14 → ANH3MEDSUR 18:42
PROVIDERS: Nurse Practitioner; Orthopaedic Surgery; Admitting Provider Family Medicine; Emergency Provider Emergency Medicine; PCP Family Medicine; Visit Provider Nurse Practitioner
PROC: 0QH634Z Insertion of Internal Fixation Device into Right Upper Femur, Percutaneous Approach (ICD-10-PCS; principal; 2023-01-24 12:30)
DX: S72.091A Other fracture of head and neck of right femur, initial encounter for closed fracture (principal); S50.311A Abrasion of right elbow, initial encounter; W11.XXXA Fall on and from ladder, initial encounter; E78.5 Hyperlipidemia, unspecified; R03.0 Elevated blood-pressure reading, without diagnosis of hypertension; M17.10 Unilateral primary osteoarthritis, unspecified knee; E66.9 Obesity, unspecified; Z68.34 Body mass index [BMI] 34.0-34.9, adult; Z87.891 Personal history of nicotine dependence; Z85.820 Personal history of malignant melanoma of skin; Z98.49 Cataract extraction status, unspecified eye
CPT/HCPCS: 36415; 70450; 71045; 72125; 73502; 80048; 80053; 83735; 84443; 85025; 86850; 86900; 86901; 96374; 97110; 97116; 97161; 97165; 97530; 97535; 99199; 99285; A9270; C1769; J0131; J0690; J1100; J1885; J2405; J2704; J3010; J7030; J7120

== ENCOUNTER 2023-11-27 14:53 | Outpatient (CLI) | payer MEDICARE, SELFPAY ==
--- NOTE | ~2023-11-27 | XR_ITS ---
EXAMINATION: XR knee LT 3V DATE: 11/27/2023 15:09 INDICATION: Pain in left knee. TECHNIQUE: 3 views of left knee including standing views were obtained. COMPARISON: Left knee radiograph 02/25/2019 FINDINGS: Bone alignment is normal. No fracture. There is mild tricompartmental osteoarthritis. There is a small knee joint effusion. IMPRESSION: 1. Mild left knee osteoarthritis. 2. Small left knee joint effusion. Reviewed, dictated and finalized at location E. [facility]
== END 2023-11-27 14:54 ==
LOC: MICIMG 14:56
PROVIDERS: PCP Family Medicine; Visit Provider Nurse Practitioner
DX: M17.12 Unilateral primary osteoarthritis, left knee (principal); M25.462 Effusion, left knee
CPT/HCPCS: 73562

== ENCOUNTER 2025-04-07 15:08 | Outpatient (CLI) | payer MEDICARE, SELFPAY ==
--- NOTE | ~2025-04-07 | XR_ITS ---
EXAM: XR thoracic spine 3V DATE: 04/07/2025 15:26 HISTORY: M47.9 - Spondylosis, unspecified . COMPARISON: None available. FINDINGS: Exam somewhat limited by body habitus and underpenetration Vertebral body alignment intact . Vertebral body heights preserved. Multilevel mild disc space narrowing and bridging marginal osteop hytosis. No traumatic malalignment or fracture. Visualized lung parenchyma is clear. IMPRESSION: Mild multilevel degenerative disc disease. If pain persists consider CT or MRI of the tho racic spine for further evaluation. Reviewed, dictated and finalized at location K. IMPRESSION: Mild multilevel degenerative disc disease. If pain persists conside r CT or MRI of the thoracic spine for further evaluation.
--- NOTE | ~2025-04-07 | XR_ITS ---
EXAM: XR lumbar spine 6V w bending DATE: 04/07/2025 15:26 HISTORY: M47.9 - Spondylosis, unspecified . COMPARISON: None available. FINDINGS: 5 nonrib-bearing lumbar-type vertebral bodies. Pedicles intact. 2-3 mm retrolistheses at L 1-2 through L3-4 that remain stable in flexion and extension. Vertebral body heights preserved. Multi level disc space narrowing, moderate at L1-2, mild at the remaining levels. Moderate facet hypertroph y and sclerosis at L4-5 and L5-S1. No pars defects. Interspinous narrowing at L3-4 and L4-5. No fract ure or dislocation. 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 Level degenerative disc disease, mode rate at L1-2. Moderate lower lumbar facet arthropathy with interspinous narrowing. Reviewed, dictated and finalized at location K. IMPRESSION: Stable grade 1 retrolistheses at L1-2 through L3-4. Level degenerat connie disc disease, moderate at L1-2. Moderate lower lumbar facet arthropathy wit h interspinous narrowing.
== END 2025-04-07 15:09 | disposition home or self-care (01) ==
LOC: MICIMG 15:09
PROVIDERS: PCP Nurse Practitioner Family; Visit Provider Nurse Practitioner Family
DX: M51.34 Other intervertebral disc degeneration, thoracic region (principal); M43.16 Spondylolisthesis, lumbar region; M51.360 Other intervertebral disc degeneration, lumbar region with discogenic back pain only; M47.816 Spondylosis without myelopathy or radiculopathy, lumbar region
CPT/HCPCS: 72072; 72114

== ENCOUNTER 2025-06-11 07:47 | Outpatient (CLI) | payer MEDICARE, SELFPAY ==
--- NOTE | ~2025-06-11 | CT_ITS ---
Salvador Iglesias EXAMINATION: CT abdomen pelvis w con COMPARISON: None HISTORY: M54.9 - Dorsalgia, unspecified TECHNIQUE: Axial images were obtained through the abdomen, pelvis post administration of IV contrast. Oral contrast was also administered. Coronal reconstruction images were obtained from the axial views. CT scan performed using dose optimization techniques including the following automated exposure control; adjustment of mA and/or kV; use of iterative reconstruction technique. Automatic exposure control was used to reduce radiation dose. Permanent radiation dose record is archived to PACS. FINDINGS: CT abdomen: LUNG BASES: Right lower lobe lung 3 mm micronodule. LIVER: Mild hepatic steatosis. Subcentimeter probable liver cysts. Portal vein patent. No intrahepatic biliary duct dilatation. SPLEEN: Calcified punctate splenic granulomas.. KIDNEYS: Right Kidney: Unremarkable. No calculi. No hydronephrosis. Left Kidney: Left kidney midpole simple cyst 2 x 2 cm. ADRENAL GLANDS: Unremarkable. PANCREAS: Unremarkable. GALLBLADDER/BILIARY: Unremarkable. No biliary dilatation. STOMACH AND ESOPHAGUS: Thickening of the esophagus may represent mild esophagitis. BOWEL/MESENTERY: Moderate fecal content. No colitis or diverticulitis. Appendix normal. Mesentery normal. Small bowel normal. ADENOPATHY/RETROPERITONEUM: There are enlarged lymph nodes in the peripancreatic space the largest 1.6 x 1.7 cm possibly reactive. AORTA/VASCULATURE: Normal caliber aorta. FREE FLUID OR FREE AIR: No free fluid.. CT pelvis: SOLID ORGANS/REPRODUCTIVE: Prostate enlarged, correlate with PSA. BLADDER: Tiny 2 mm bladder calculi suspected. Mild circumferential thickening of the bladder wall noted. OSSEOUS STRUCTURES: Fixation of the right femur. No sclerotic or lytic lesions. OVERLYING SOFT TISSUES: Small bilateral fat-containing inguinal hernia. IMPRESSION: 1. Mild cystitis. Probable bladder calculi. 2. Nonspecific peripancreatic lymphadenopathy possibly reactive. 6 month follow- up recommended to assess Reviewed, dictated and finalized at location A. IMPRESSION: 1. Mild cystitis. Probable bladder calculi. 2. Nonspecific peripancreatic lymphadenopathy possibly reactive. 6 month follow -up recommended to assess
--- NOTE | ~2025-06-11 | CT_ITS ---
EXAMINATION: CT thoracic lumbar wo con, 06/11/2025 8:03 CDT HISTORY: M54.9 - Dorsalgia, unspecified COMPARISON: No comparisons available. Technique: Axial images were obtained of the spine per protocol. One or more of the following dose reduction techniques were used: automated exposure control, adjustment of the mA and/or kV according to patient size, use of iterative reconstruction technique. Unless otherwise stated, incidental findings do not require dedicated follow up imaging Findings: Moderate loss of vertebral height throughout, no fracture, minimal grade 1 retrolisthesis of L2 on L3 no additional levels of subluxation. There is moderate loss of disc height throughout most marked at T8-9, T9-10 and T10-11 in the thoracic spine and at L2-3 L4-5 and L5-S1 in the lumbar spine with moderate to severe canal and foraminal stenosis. Soft tissues unremarkable Impression: Degenerative changes detailed above. MRI is recommended to further evaluate Reviewed, dictated and finalized at location A. Impression: Degenerative changes detailed above. MRI is recommended to further evaluate
--- OUTSIDE RECORDS SUMMARY | 2025-06-11 07:52 | XMS_ITS | Clinical Summary ---
Author Organization [facility] Address [address] [place] [address] Care Team Providers Care Risk Assessment Analyst Name Role Phone Joaquín Hayes MD Primary Care Provider Source Comments [facility],non-owned Affiliates and Associated Physician Practices is amultiple site organization consisting of ambulatory clinics and hospital sitesin [place], [place], [place] and [place]. This disclosure is being madepursuant to the Care Everywhere program and may not contain all information available regarding this patient. Last updated 18.[facility] Allergies No known active allergies Medications * Be aware that medications may not be up to date on this document. Alwaysverify current medications with the patient. 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 Hernandez in 2011, (unsure of BD or subtype, thinks it was 0.4mm) Melanoma in situ of other parts of face 10/30/19 14 Overview (12/23/2017): Lentiginous MIS - s/p staged excision in 06/2012. Family History Medical History Relation Name Comments Cancer - Breast Mother Allergy (Severe) Neg Hx CVA Neg Hx Cancer Neg Hx Cancer - Other Neg Hx Cancer - Skin, Melanoma Neg Hx Cancer - Skin, Non Melanoma Neg Hx Eczema Neg Hx Hemophilia Neg Hx Psoriasis Neg Hx Rashes/Skin Problems Neg Hx Relation Name Status Comments Mother Social History Tobacco Use Types Packs/Day Years Used Date Smoking Tobacco: Former Cigarettes Q uit: 09/23/1986 Smokeless Tobacco: Former Alcohol Use Standard Drinks/Week Comments Yes 2.5 (1 standard drink = 0.6 oz p ure alcohol) Sex and Gender Information Value Date Recorded Sex Assigned at Not on file 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 Gender Identity Not on file Sexual Orientation Not on file Last Filed Vital Signs Vital Sign Reading Time Taken Comments Blood Pressure 136/71 02/02/2015 3:20 PM CDT Pulse 57 02/02/2015 3:20 PM CDT Temperature 36.3 C (97.4 F) 02/03/2014 9:20 AM CDT Respiratory Rate - - Oxygen Saturation 96% 02/03/2014 9:20 AM CDT Inhaled Oxygen Concentration - - Weight 96.2 kg (212 lb) 02/02/2015 3:20 PM CDT Height 170.2 cm (5' 7) 02/02/2015 3:20 PM CDT Body Mass Index 33.2 02/02/2015 3:20 PM CDT Plan of Treatment Health Maintenance Due Date Last Done Comments HEPATITIS C SCREENING 11/05/1963 DTAP/TDAP/TD VACCINES (1 - Tdap) 1965 PNEUMOCOCCAL VACCINE 50+ (1 of 1 - PCV) 1996 ZOSTER VACCINE (1 of 2) 1996 Respiratory Syncytial Virus (RSV) Vaccine Pt: or over 60 yrs (1 - 1-dose 75+ series) 2021 DEPRESSION SCREENING 09/23/2024 COVID-19 VACCINE (1 - 2023-2 5 season) 2025 INFLUENZA VACCINE (#1) 2025 HEPATITIS B VACCINE Aged Out No longe r eligible based on patient's age to complete this topic HIB VACCINE Aged Out No longer eligi ble based on patient's age to complete this topic HPV VACCINE Aged Out No longer eligi ble based on patient's age to complete this topic MENINGOCOCCAL (Group B) VACC INE SHARED DECISION-MAKING Aged Out No longer eligibl e based on patient's age to complete this topic MENINGOCOCCAL GROUPS A/C/Y/W VACCINE Aged Out No longer eligible b ased on patient's age to complete this topic Insurance [facility] MANAGED MEDICARE ADV Care Teams Risk Assessment Analyst Relationship Specialty Start Date End Date Joaquín Hayes MD [address] [place] [id number] PCP - General 01/15/14
--- OUTSIDE RECORDS SUMMARY | 2025-06-11 07:52 | XMS_ITS | Clinical Summary ---
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[employer] Name Role Phone Unavailable Primary Care Provider Unavailabl e Social History Tobacco Use Types Packs/Day Years Used Date Smoking Tobacco: Never Assessed Sex and Gender Information Value Date Recorded Sex Assigned at Not on file Legal Sex Male 7:06 PM CDT Gender Identity Not on file Sexual Orientation Not on file Plan of Treatment Health Maintenance Due Date Last Done Comments Hepatitis C 1963 DTaP, Tdap and Td Vaccines ( 1 - Tdap) 1965 Pneumococcal Vaccine: 50+ Ye ars (1 of 1 - PCV) 1996 Zoster Vaccines (1 of 2) 1996 RSV Immunization or 60+ Years (1 - 1-dose 75+ series) 2021 COVID-19 Vaccine ( - 2023-2 5 season) 2025 Meningococcal B Vaccine Aged Out No l onger eligible based on patient's age to complete this topic Meningococcal Vaccine Aged Out No michael irasema eligible based on patient's age to complete this topic RSV Immunizations Under 20 Months Aged Out No longer eligible based on patient's age to complete this topic
[2025-06-11 08:17] LABS: Estimated Glomerular Filt Rate > 60
== END 2025-06-11 07:48 | disposition home or self-care (01) ==
PROVIDERS: PCP Nurse Practitioner Family; Visit Provider Nurse Practitioner Family
DX: M54.9 Dorsalgia, unspecified (principal); R10.9 Unspecified abdominal pain; M51.34 Other intervertebral disc degeneration, thoracic region; N30.90 Cystitis, unspecified without hematuria
CPT/HCPCS: 72128; 72131; 74177; Q9967